=== PATIENT | female | born 1970 | race Caucasian/White ===

== ENCOUNTER 2024-04-23 23:41 | Emergency (ER) | payer OTHER, SELFPAY ==
[2024-04-23 23:46] VITALS: PULSE 94; O2SAT 99
[2024-04-23 23:47] VITALS: BP 138/89; PULSE 86; O2SAT 97
[2024-04-23 23:51] VITALS: BP 139/89; PULSE 83; RESP 18; TEMP 36.7; O2SAT 100; BMI 34.6
--- NOTE | 2024-04-23 23:57 | DI.RAD.S_ITS ---
PROCEDURE: XR CHEST 1V INDICATIONS: Shortness of breath TECHNIQUE: One view of the chest was acquired. COMPARISON: None. FINDINGS: Surgical changes and devices: None. Lungs and pleura: Lungs are clear. No pleural effusions or pneumothorax. Mediastinum: Mediastinal contours appear normal. Heart size is normal. Bones and chest wall: No suspicious bony lesions. Overlying soft tissues appear unremarkable. IMPRESSION: No acute cardiopulmonary abnormality is seen. Approved by: Nikhil Beckford M.D. on 04/24/2024 at 0:53
[2024-04-24] VITALS: BP 143/84; PULSE 66; O2SAT 97
[2024-04-24] MEDS: ALBUTEROL/IPRATROPIUM 3 ML AMPUL INH (00:07)
--- NOTE | 2024-04-24 00:16 | EKG_ITS ---
[facility] [address] [place] [address] Test Date: 2024-04-24 Pat Name: September Department: [facility] Room: Gender: Female Emergency Management Director: PINO : 1970 Requested By: Order Number: [id number] Reading MD: Jordan Casarez MD Measurements Intervals [place] Rate: 70 P: 66 UT: 164 QRS: -16 QRSD: 76 T: 55 QT: 410 QTc: 442 Interpretive Statements Normal sinus rhythm Nonspecific T wave abnormality Electronically Signed On 04-24-2024 15:32:48 PST by Jordan Casarez MD
[2024-04-24 00:18] LABS: INR 0.9 (0.9-1.3); Prothrombin Time 10.6 SECONDS (9.4-12.5)
--- NOTE | 2024-04-24 00:18 | ED.SOB ---
HPI - SOB/Dyspnea General Chief Complaint: Shortness of Breath/Dyspnea Stated Complaint: difficulty breathing Time Seen by Provider: 04/24/24 00:18 Source: patient Mode of arrival: Ambulatory Limitations: no limitations History of Present Illness HPI Narrative: Patient is a 53-year-old female history of asthma comes in complaining of shortness a breath for the past week, states that she has been feeling sick for the past 2-1/2 weeks. states that she has also been having a cough ongoing and persistent for the past week. States that she has been using albuterol inhaler intermittently with mild improvement but persistent therefore decided come into the ED for further evaluation treatment. Patient denies any other symptoms at this time no nausea vomiting abdominal pain or any other GI/ symptoms. Related Data Previous Rx's Medication Instructions Recorded albuterol sulfate 90 mcg/actuation 2 inh inhalation Q6H PRN shortness 04/24/24 breath activated powder inhaler of breath or wheezing #1 ea prednisone 20 mg tablet 40 mg (2 x 20 mg) PO DAILY 5 days 04/24/24 #10 tabs Allergies Allergy/AdvReac Type Severity Reaction Status Date / Time bacitracin AdvReac Intermediate Blister Verified 04/24/24 00:57 [From Neosporin ([id number])] neomycin AdvReac Intermediate Blister Verified 04/24/24 00:57 [From Neosporin ([id number])] polymyxin B AdvReac Intermediate Blister Verified 04/24/24 00:57 [From Neosporin ([id number])] Review of Systems Review of Systems Narrative: General: Denies fever, chills, weight loss HEENT: Denies headache, eye drainage, eye irritation, head trauma, sore throat, voice change Cardiovascular: Denies any chest pain, palpitations, shortness of breath, tachycardia Respiratory: Positive cough, shortness of breath GI/: Denies any abdominal pain, nausea, vomiting, diarrhea, bright red blood per rectum, melanotic stools, urinary frequency, urinary retention, dysuria, hematuria MSK: Denies any joint pain, muscle pains, swelling Skin: Denies any rashes, lesions, discoloration Neuro: Denies any headache, lightheadedness, dizziness, fainting, weakness Psych: Denies SI/HI Patient History Social History Smoking Status: Never smoker Smoking Status: Never smoker alcohol intake frequency: holidays/special occasions only Substance Use Type: does not use Exam Narrative Exam Narrative: General: Cooperative, comfortable, well-developed, not in acute distress HEENT: Normocephalic, atraumatic, PERRLA, normal sclera, eyelids normal, Neck: Active full range of motion, atraumatic Chest: Normal to inspection, negative crepitus, no overlying erythema ecchymosis Respiratory: coughing on exam, mild expiratory wheezes in all lung hernandez, but protecting airway speaking full sentences Cardiology: Regular rate rhythm negative gallop, murmur, rubs GI/: Normal to inspection, soft, nonrigid, no tenderness to palpation, exam deferred MSK: Full range of active range of motion of all 4 extremities, atraumatic Skin: No rashes lesions noted Neuro: Alert awake oriented x3, moves all 4 extremities spontaneously, cranial nerves intact, able to answer all questions appropriately follows commands appropriately Psych: Cooperative, negative suicidal or homicidal ideations Initial Vital Signs Initial Vital Signs: Vital Signs Pulse Rate 94 H 04/23/24 23:46 Pulse Oximetry 99 04/23/24 23:46 Course Orders Ordered: ED Orders 04/23/24 23:55 Complete Blood Count AUTO DIFF Stat Comprehensive Metabolic Panel Stat Lactate (Lactic Acid) Stat NT-proBNP (BNP-Adult 18+) Stat Prothrombin Time INR Stat Troponin I Stat 04/23/24 23:57 XR chest 1V Stat EKG-12 Lead Stat Measure peak expiratory flow ONCE RT Consult Eval and Treat NOW 04/24/24 00:00 Covid-19 + FLU A/B + RSV - PCR Stat Discontinued Medications Albuterol/Ipratropium (Albuterol/Ipratropium 3 Ml Ampul) 3 ml INH NOW ONE Stop: 04/24/24 00:02 Last Admin: 04/24/24 00:07 Dose: 3 ml Documented By: PINO Dexamethasone (Dexamethasone 10 Mg/Ml Vial) 10 mg IV NOW ONE Stop: 04/24/24 00:36 Last Admin: 04/24/24 00:57 Dose: 10 mg Documented By: SB Vital Signs Vital signs: Vital Signs - 8 hr 04/23/24 23:46 04/23/24 23:47 04/23/24 23:47 Temperature Pulse Rate 94 H 86 Respiratory Rate Blood Pressure 138/89 Pulse Oximetry 99 97 Oxygen Delivery Method 04/23/24 23:51 04/24/24 00:00 04/24/24 00:00 Temperature 98.1 F Pulse Rate 83 66 Respiratory Rate 18 Blood Pressure 139/89 143/84 H Pulse Oximetry 100 97 Oxygen Delivery Method Room Air Room Air 04/24/24 00:19 04/24/24 00:30 04/24/24 00:30 Temperature Pulse Rate 74 69 Respiratory Rate 24 16 Blood Pressure 150/77 H Pulse Oximetry 99 98 Oxygen Delivery Method Room Air Room Air MDM - SOB/Dyspnea Differential Diagnosis Differential diagnosis: Likely community acquired pneumonia, asthma with exacerbation and other ( electrolyte abnormality, COVID, flu) Lab Data 04/23/24 23:55 04/23/24 23:55 Labs: Lab Results 04/23/24 04/24/24 Range/Units 23:55 00:00 WBC 7.9 (4.5-11.0) X10^3/uL RBC 4.41 (4.0-5.2) X10^6/uL Hgb 12.3 (12.0-16.0) g/dL Hct 36.8 (36-46) % MCV 83.5 (80-100) fL MCH 27.8 (26-34) PG MCHC 33.4 (30-36) % RDW 14.0 (11.6-14.8) % Plt Count 286 (150-400) X10^3/uL Neut % (Auto) 44.3 L (50-75) % Lymph % (Auto) 39.0 (25-40) % Harrison % (Auto) 10.2 (3-14) % Eos % (Auto) 5.2 H (2-4) % Baso % (Auto) 1.3 (0-2) % Neut # (Auto) 3500 (9915-6508) /uL Lymph # (Auto) 3100 (5191-0897) /uL Harrison # (Auto) 800 (0-900) /uL Eos # (Auto) 400 (0-450) /uL Baso # (Auto) 100 (0-100) /uL PT 10.6 (9.4-12.5) SECONDS INR 0.9 (0.9-1.3) Sodium 134 L (137-145) mmol/L Potassium 3.7 (3.4-5.1) mmol/L Chloride 102 (98-107) mmol/L Carbon Dioxide 28 (22-32) mmol/L BUN 18 H (7-17) mg/dL Creatinine 0.96 (0.52-1.04) mg/dL Estimated GFR > 60 (>60) mL/min BUN/Creatinine Ratio 18.8 (6-22) Glucose 91 (70-100) mg/dL Lactate < 0.5 L (0.7-2.1) mmol/L Calcium 9.4 (8.4-10.2) mg/dL Total Bilirubin 0.4 (0.2-1.3) mg/dL AST 32 (14-36) IU/L ALT 39 H (<35) IU/L Alkaline Phosphatase 71 (38-126) U/L Troponin I < 0.012 (0.01-0.034) ng/mL NT-Pro-B Natriuret Pep < 20 (<125) pg/mL Total Protein 7.6 (6.3-8.2) g/dL Albumin 4.0 (3.5-5.0) g/dL Globulin 3.6 (1.7-4.1) g/dL Albumin/Globulin Ratio 1.1 (1.0-2.8) SARS-CoV-2 (PCR) Negative (Negative) Influenza A (RT-PCR) Flu a negative (NEGATIVE) Influenza B (RT-PCR) Flu b negative (NEGATIVE) RSV (PCR) Negative (Negative) Imaging Data Chest x-ray: Radiologist's Impression: [address] [address] XRay Report Signed Patient: Yair MR#: [id number] : 1970 Acct:[id number] Age/Sex: 53 / F Date of Service: 04/23/24 Loc: ED Accession Number: [id number] Procedure: XR chest 1V Ordering Provider: Stiven Gonzalez D.O. PROCEDURE: XR CHEST 1V INDICATIONS: Shortness of breath TECHNIQUE: One view of the chest was acquired. COMPARISON: None. FINDINGS: Surgical changes and devices: None. Lungs and pleura: Lungs are clear. No pleural effusions or pneumothorax. Mediastinum: Mediastinal contours appear normal. Heart size is normal. Bones and chest wall: No suspicious bony lesions. Overlying soft tissues appear unremarkable. IMPRESSION: No acute cardiopulmonary abnormality is seen. ECG Data Interpretation: EKG interpreted ED physician sinus at 70 beats per minute, QTC 442, normal axis, nonspecific ST changes, no STEMI MDM Narrative Medical decision making narrative: patient is a 53-year-old female with history of asthma presents for cough shortness of breath ongoing persistent for the past week, states that she was feeling sick about a month ago states that those symptoms resolved however she is still having persistent intermittent cough shortness of breath therefore decided come into the ED for further evaluation treatment. patient with EKG nonischemic troponin negative, chest x-ray without any acute findings. Patient with significant improvement after breathing treatment here and steroids. Patient will be treated for acute asthma exacerbation, patient will be sent home with steroids and additional medications for her albuterol inhaler, instructed to follow up with primary care in outpatient setting she verbalized understanding of this and agrees to being discharged home with outpatient follow up. She has not requiring any supplemental oxygen at time of discharge nor had any time here in the emergency department. Discharge Plan Departure Patient Disposition: Home Clinical Impression: Asthma exacerbation Activity Restrictions/Additional Instructions: Please read the discharge instructions sheet carefully and bring all papers to all doctor follow-up visits, as it may contain information that your doctor may want to see. Disease processes change and evolve, if your symptoms worsen or if you develop any new symptoms that are concerning to you please return for evaluation. Your evaluation today does not show any evidence of any life-threatening/serious illnesses requiring admission to the hospital or surgery. Please follow-up with your doctor for re-evaluation in approximately 1 day. Seek immediate medical attention for any worrisome symptoms. Prescriptions: New prednisone 20 mg tablet 40 mg PO DAILY 5 Days Qty: 10 0RF albuterol sulfate 90 mcg/actuation aerosol powdr breath activated 2 inh inhalation Q6H PRN (Reason: shortness of breath or wheezing) Qty: 1 2RF Referrals: María Elena Fenton ARNP [Primary Care Provider] - Stand Alone Forms: Patient Portal/API/Survey
[2024-04-24 00:19] VITALS: PULSE 74; RESP 24; O2SAT 99
[2024-04-24 00:20] LABS: Add Manual Diff / Slide Review NO; Basophils Absolute Auto 100 /uL (0-100); Basophils Percent Auto 1.3 % (0-2); Eosinophils Absolute Auto 400 /uL (0-450); Eosinophils Percent Auto 5.2 % (2-4); Hematocrit 36.8 % (36-46); Hemoglobin 12.3 g/dL (12.0-16.0); Lymphocytes Absolute Auto 3100 /uL (1100-4500); Mean Corpuscular HGB Conc 33.4 % (30-36); Mean Corpuscular Hemoglobin 27.8 PG (26-34); Mean Corpuscular Volume 83.5 fL (80-100); Monocytes Absolute Auto 800 /uL (0-900); Monocytes Percent Auto 10.2 % (3-14); Neutrophils Absolute Auto 3500 /uL (1500-7000); Neutrophils Percent Auto 44.3 % (50-75); Platelet Count 286 X10^3/uL (150-400); Red Blood Cell Count 4.41 X10^6/uL (4.0-5.2); White Blood Cell Count 7.9 X10^3/uL (4.5-11.0)
[2024-04-24 00:22] LABS: Alanine Aminotransferase 39 IU/L (<35); Albumin Globulin Ratio 1.1 (1.0-2.8); Alkaline Phosphatase 71 U/L (38-126); Aspartate Aminotransferase 32 IU/L (14-36); BUN Creatinine Ratio 18.8 (6-22); Bilirubin Total 0.4 mg/dL (0.2-1.3); Blood Urea Nitrogen 18 mg/dL (7-17); Calcium 9.4 mg/dL (8.4-10.2); Carbon Dioxide 28 mmol/L (22-32); Chloride 102 mmol/L (98-107); Estimated Glomerular Filt Rate > 60 mL/min (>60); Globulin 3.6 g/dL (1.7-4.1); Glucose 91 mg/dL (70-100); HEMOLYSIS < 15 (0-50); Potassium 3.7 mmol/L (3.4-5.1); Sodium 134 mmol/L (137-145); Total Protein 7.6 g/dL (6.3-8.2)
[2024-04-24 00:26] LABS: Lactate (Lactic Acid) < 0.5 mmol/L (0.7-2.1)
[2024-04-24 00:30] VITALS: BP 150/77; PULSE 69; RESP 16; O2SAT 98
[2024-04-24 00:33] LABS: NT-proBNP (BNP-Adult 18+) < 20 pg/mL (<125); Troponin I < 0.012 ng/mL (0.01-0.034)
[2024-04-24] MEDS: DEXAMETHASONE 10 MG/ML VIAL IV (00:57)
[2024-04-24 01:00] VITALS: BP 137/83; PULSE 65; RESP 14; O2SAT 97
[2024-04-24 01:20] LABS: Influenza A - CEPHEID Flu A NEGATIVE (NEGATIVE); Influenza B - CEPHEID Flu B NEGATIVE (NEGATIVE); Respiratory Syncytial Virus Negative (Negative)
[2024-04-24 01:22] LABS: COVID-19 CEPHEID 4-PLEX PCR Negative (Negative)
[2024-04-24 01:30] VITALS: BP 129/72; PULSE 75; RESP 21; O2SAT 96
== END 2024-04-24 01:45 | disposition home or self-care (01) ==
PROVIDERS: Emergency Provider Student in an Organized Health Care Education/Training Program; PCP Nurse Practitioner Family
DX: J45.901 Unspecified asthma with (acute) exacerbation (principal); R05.9 Cough, unspecified; Z11.52 Encounter for screening for COVID-19
CPT/HCPCS: 0241U; 36415; 71045; 80053; 83605; 83880; 84484; 85025; 85610; 93005; 93010; 94640; 96374; 99284; J1100

== ENCOUNTER 2025-03-11 04:15 | Emergency (ER) | payer OTHER, SELFPAY ==
[2025-03-11 04:20] VITALS: BP 160/78; PULSE 76; RESP 16; TEMP 36.8; O2SAT 98; BMI 35.9
--- NOTE | 2025-03-11 04:30 | ED_ITS ---
HPI - Extremity Injury (Lower) General Chief Complaint: Extremity Injury, Lower Stated Complaint: lt knee twisted last week Time Seen by Provider: 03/11/25 04:27 Source: patient Mode of arrival: Ambulatory History of Present Illness HPI Narrative: 54-year-old female with a history of bilateral ACL tears and repairs. Her right knee was repaired in her teens and her left knee was repaired 3 years ago. Patient recently about a week ago twisted her left knee but has been rehabbing at home on her own. Patient feels ready and eager to return to work and needs a note for clearance. There is still some swelling around the left knee area but no pain. Related Data Previous Rx's ?Medication ?Instructions ?Recorded albuterol sulfate 90 mcg/actuation 2 inh inhalation Q6 H PRN shortness 04/24/24 breath activated powder inhaler of breath or wheezing #1 ea Allergies Allergy/AdvReac Type Severity Reaction Status Date / Time bacitracin (From Neosporin AdvReac Intermediate Blister Verified 03/11/25 04:20 ([id number])) neomycin (From Neosporin AdvReac Intermediate Blister Verified 03/11/25 04:20 ([id number])) polymyxin B (From Neosporin AdvReac Intermediate Blister Verified 03/11/25 04:20 ([id number])) Review of Systems Review of Systems ROS Unobtainable: All systems reviewed & are unremarkable except as noted in HPI and below Patient History Smoking Status: Never smoker alcohol intake frequency: holidays/special occasions only Exam Initial Vital Signs Initial Vital Signs: Vital Signs Temperature 98.3 F 03/11/25 04:20 Pulse Rate 76 03/11/25 04:20 Respiratory Rate 16 03/11/25 04:20 Blood Pressure 160/78 H 03/11/25 04:20 Pulse Oximetry 98 03/11/25 04:20 Oxygen Delivery Method Room Air 03/11/25 04:20 General: Patient appears to be in no acute distress, acting appropriately Head: normocephalic, atraumatic, HEENT: Pupils equal round reactive, eyes tracking well, neck supple, no JVD Heart: regular rate and rhythm, no murmurs, rubs, or gallops heard Lungs: clear to auscultation, no adventitious sounds Abdomen: soft , nontender, nondistended, positive bowel sounds Neurological: no focal neurological signs, moving all extremities well, alert and oriented x3, Psych: good judgment ,good insight, mood is normal. left knee exam: daniel, drawer, and angella tests neg , mild edema Course Vital Signs Vital signs: Vital Signs - 8 hr 03/11/25 04:20 Temperature 98.3 F Pulse Rate 76 Respiratory Rate 16 Blood Pressure 160/78 H Pulse Oximetry 98 Oxygen Delivery Method Room Air MDM - Extremity Injury (Lower) MDM Narrative Medical decision making narrative: 54-year-old female with a remote history of left knee ACL tear and repair. Patient has a recent history of an injury to her left knee from a twisting motion but has done some home physical therapy on her own along with some ice elevation and compression to the point where it is no longer painful. Patient is allowed to return to work with no restrictions. Discharge Plan Departure Patient Disposition: Home Clinical Impression: Knee Injury Qualifiers: Encounter type: initial encounter Laterality: left Qualified Code(s): S89.92XA - Unspecified injury of left lower leg, initial encounter Instructions: DI for Knee Pain Activity Restrictions/Additional Instructions: Go ahead and get a left knee sleeve or soft flexible brace for further support. Went ahead and allow the patient to return to work. Follow up with orthopedic surgery if pain returns or have a new injury. Prescriptions: No Action albuterol sulfate 90 mcg/actuation aerosol powdr breath activated 2 inh inhalation Q6H PRN (Reason: shortness of breath or wheezing) Qty: 1 2RF Referrals: María Elena Fenton ARNP [Primary Care Provider, Medical] Stand Alone Forms: Patient Portal/API, Work Release Note
== END 2025-03-11 04:39 | disposition home or self-care (01) ==
PROVIDERS: Emergency Provider Family Medicine; PCP Nurse Practitioner Family
DX: S89.92XA Unspecified injury of left lower leg, initial encounter (principal); X50.1XXA Overexertion from prolonged static or awkward postures, initial encounter
CPT/HCPCS: 99281